=== PATIENT | male | born 1980 | race Two or more races ===

== ENCOUNTER 2020-06-01 11:14 | Outpatient (CLI) | payer OTHER | END 2020-06-01 15:27 | disposition home or self-care (01) | LOC: OFIC 805 11:14 | PROVIDERS: ATTEND Otolaryngology Otology & Neurotology | DX: J34.3 Hypertrophy of nasal turbinates (principal); J34.89 Other specified disorders of nose and nasal sinuses ==

== ENCOUNTER 2020-06-29 10:23 | Outpatient (CLI) | payer OTHER | END 2020-06-29 15:09 | disposition home or self-care (01) | LOC: OFIC 805 10:23 | PROVIDERS: ATTEND Otolaryngology Otology & Neurotology | DX: J34.3 Hypertrophy of nasal turbinates (principal); J34.89 Other specified disorders of nose and nasal sinuses; J31.0 Chronic rhinitis ==